=== PATIENT | male | born 1955 | race Caucasian/White ===

== ENCOUNTER 2017-07-20 13:49 | Emergency (ER) | payer OTHER ==
[~2017-07-20] VITALS: Ht 172.7 cm; Wt 73.4 kg
[2017-07-20] MEDS ORDERED: TETANUS AND DIPHTHERIA TOX/PF 0.5 ML VIAL. VAX IM ONE (14:45)
--- NOTE | 2017-07-20 14:55 | RAD ---
Indication closed head injury. Noncontrast images of the head were obtained. No prior imaging of the head is available. Soft tissue swelling over the left calvarium is noted. No acute calvarial finding is seen. There is significant opacification of the right maxillary sinus. Focal sinusitis is not excluded. The ventricles and sulci are within normal limits. There is no subdural or epidural hematoma. There is no mass or midline shift. No hemorrhage or acute intracranial finding is seen. IMPRESSION: No acute or significant intracranial finding seen PQRS Compliance Statement: One or more of the following individualized dose reduction techniques were utilized for this examination: 1. Automated exposure control 2. Adjustment of the mA and/or kV according to patient size 3. Use of iterative reconstruction technique
[2017-07-20 15:16] VITALS: BP 115/76
[2017-07-20 15:26] LABS: BACTERIA,URINE FEW /HPF (0-FEW); BILIRUBIN,URINE NEG (NEG); CLARITY,URINE CLOUDY; COLOR,URINE YELLOW; GLUCOSE,URINE NEG (NEG); NITRITE,URINE NEG (NEG); RBC,URINE >40 /HPF (0-2); SQUAMOUS EPITHELIAL CELL,UR OCC /LPF; UROBILINOGEN,URINE 0.2 mg/dL (0.2 mg/dL)
[2017-07-20] MEDS ORDERED: CYCL-331 PO (15:26)
[2017-07-20 15:27] LABS: GRANULAR CASTS,URINE OCC /HPF; HYALINE CASTS, URINE OCC /HPF
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
== END 2017-07-20 15:40 | disposition home or self-care (01) ==
LOC: ER 13:49
DX: S00.93XA Contusion of unspecified part of head, initial encounter (principal); R31.9 Hematuria, unspecified; M54.89 Other dorsalgia; Z88.5 Allergy status to narcotic agent; V29.9XXA Motorcycle rider (driver) (passenger) injured in unspecified traffic accident, initial encounter; Y93.89 Activity, other specified; Y99.8 Other external cause status; Y92.89 Other specified places as the place of occurrence of the external cause
CPT/HCPCS: 70450; 76700; 81001; 87086; 90471; 90714; 96372; 99285-25